=== PATIENT | female | born 1970 | race Caucasian/White ===

== ENCOUNTER 2019-04-22 22:36 | Emergency (ER) | payer OTHER ==
[~2019-04-22] VITALS: Ht 162.6 cm; Wt 104.5 kg
[2019-04-22 22:40] VITALS: Ht 162.6 cm; Wt 104.5 kg
[2019-04-23] MEDS ORDERED: KETOROLAC 15 MG INJ IM STA (01:39)
[2019-04-23] MEDS ORDERED: HYDROCODONE/APAP (5/325) TAB PO ONE (02:00)
--- NOTE | 2019-04-23 02:09 | ERD ---
ER Documentation Chief Complaint Chief Complaint BIB RA FROM HOME W/ C/O LT KNEE PAIN X1 MONTH HPI This is a 48-year-old female with a past medical history of morbid obesity, chronic arthritis, right sided DVT status post surgery who is presenting with 1 month of progressive worsening left knee pain. She reports that it is waxing and waning, moderate, aching, exacerbated by movement and ambulation. Over the last few days, the patient reports that the pain seemed to get worse, which is what ultimately prompted her to come to the emergency department. In the process of walking down the stairs, she reports almost falling because her knee gave out on her. The patient was being supported while she was walking down the stairs and did not fall. She does not endorse any trauma or injury. She does not endorse any significant lower extremity swelling at this time. She does not endorse any calf tenderness. Her pain is isolated to the knee. The patient denies feeling sick recently. The patient denies fever or chills. The patient has had no headache or vision changes. The patient does not endorse neck or back pain. The patient denies lightheadedness or dizziness. The patient has had no chest pain or trouble breathing. The patient denies nausea or vomiting. The patient denies abdominal pain. The patient denies changes to bowel movements or urination. The patient has had no focal deficits. The patient has had no weakness or numbness or tingling to the face or extremities. ROS All systems reviewed and are negative except as per history of present illness. PMhx/Soc History of Surgery: Yes (DVT R. LEG, LEFT WRIST) Hx Neurological Disorder: No Hx Respiratory Disorders: No Hx Cardiac Disorders: No Hx Miscellaneous Medical Probl: Yes (DVT R. LEG) Hx Alcohol Use: No Hx Substance Use: No Hx Tobacco Use: Yes Smoking Status: Current some day smoker FmHx Family History: No diabetes Physical Exam Vitals Vital Signs Date Temp Pulse Resp B/P (MAP) Pulse Ox O2 O2 Flow FiO2 Time Delivery Rate 04/23/19 85 21 109/82 97 Room Air 01:40 (91) 04/22/19 77 14 92/56 (68) 100 Room Air 23:30 04/22/19 98.4 97 19 93/74 (80) 100 22:40 Physical Exam Const: No acute distress Head: Atraumatic Eyes: Normal Conjunctiva ENT: Normal External Ears, Nose and Mouth. Neck: Full range of motion. No meningismus. Resp: Clear to auscultation bilaterally Cardio: Regular rate and rhythm, no murmurs Abd: Obese. Soft, non tender, non distended. Normal bowel sounds Skin: No petechiae or rashes Back: No midline or flank tenderness Ext: No cyanosis, or edema. Left anterior knee tenderness. Range of motion normal. No deformities. Neur: Awake and alert Psych: Normal Mood and Affect Results 24 hrs Current Medications Medications Dose Sig/Etienne Start Time Status Last (Trade) Ordered Route PRN Stop Time Admin Dose Reason Admin Ketorolac 15 mg ONCE STAT 04/23/19 DC Tromethamine IM 01:39 (Toradol) 04/23/19 01:40 1 tab ONCE ONCE 04/23/19 Acetaminophen PO 02:00 / 04/23/19 02:01 Hydrocodone Bitart ([place] (5/325)) Procedures/MDM MDM The patient's presentation warrants further investigation. Previous medical records, if available, were reviewed. EKG EKG read by me: Rate/Rhythm: Mild sinus tachycardia at 101 bpm Intervals: Normal [place]: Left Impression: Mild tachycardia. No evidence of acute ischemia IMAGING Imaging and Radiology interpretation reviewed. X-ray left knee FINDINGS: No evidence of acute displaced fracture or osseous aggressive changes such as erosion, demineralization, or periosteal reaction. Normal alignment of the femorotibial and patellofemoral joints without subluxation. There is mild sharpening of the tibial spines. There is mild asymmetric narrowing of the medial compartment. There is mild joint effusion. No radiopaque or metallic foreign body identified. Unremarkable appearance of the overlying soft tissues. IMPRESSION: No radiographic evidence of acute or aggressive osseous changes in the left knee joint. Degenerative changes including sharpening of the tibial spines and mild asymmetric narrowing of the medial compartment. Mild joint effusion. Electronically viewed and signed by Physician Artemio on 04/22/2019 23:24 Left lower extremity Doppler FINDINGS: There is normal compressibility and flow within the left common femoral, deep femoral, superficial femoral and popliteal veins. The deep veins of the calf are also patent. IMPRESSION: No sonographic evidence for deep venous thrombosis in the left lower extremity. Electronically viewed and signed by Physician Artemio on 04/22/2019 23:22 TREATMENT/DISPOSITION The patient presents for chronic left knee pain. I do not see any evidence of fracture or dislocation. There is a mild joint effusion. I do suspect osteoarthritis, likely related to her very high BMI and large body habitus. I do not suspect a septic joint. The patient's pain is anterior. I do not suspect a Calle's cyst. The patient's DVT study is negative. I have low paramjit picion for a neurovascular etiology. The patient was treated with Toradol and [place]. The patient's knee was wrapped with an Dean bandage for comfort. DISCHARGE Upon reevaluation of the patient, symptoms have improved. No emergent diagnoses were identified. At this time, I feel that the patient stable for discharge. The patient was instructed to follow-up with a primary care physician in 1-3 days. The patient will be given strict precautions with which to return to the emergency department. Prescriptions: Ibuprofen, oxycodone Disclaimer: Inadvertent spelling and grammatical errors are likely due to EHR/dictation software use and do not reflect on the overall quality of patient care. Note that the electronic time recorded on this note does not necessarily reflect the actual time of the patient encounter. Departure Diagnosis: Primary Impression: Chronic pain of left knee Additional Impression: Arthritis Condition: Stable Patient Instructions: Knee Pain, Uncertain Cause, Reducing Knee Pain and Swelling Additional Instructions: Thank you for for coming to [facility] for your care today. Please ask your nurse or provider if you have questions about your care today and do not leave until all your questions have been answered. Please use any medications given as directed and follow-up with your doctor (or the doctor you were referred to) in the next 1-3 days. If you do not have a primary care doctor you may follow up at the [facility] or critical access hospital clinic (listed below). You may also use motrin and tylenol as needed for fever and/or pain unless instructed otherwise by your provider or nurse. Indications for more urgent follow-up have been discussed, but you may return to the Emergency Department at ANY time for any worrisome or worsening symptoms. If you have abdominal pain, please know that no test or exam you received is perfect and you should follow up within 8 hours for continued pain. If you had any imaging studies today, such as an X-Ray or CT Scan, these studies will be reviewed later by a radiologist. You will be called if there are important findings that were not identified today, so make sure the contact information you provided at registration is correct. If you received any narcotic pain control medicine today, such as Vicodin, Morphine or Dilaudid, your coordination and judgment may be affected for a number of hours. Please do not drive or operate heavy machinery, and you may want someone to assist you at home. If you were given a prescription for narc otic medication, be aware that it is very addictive- use sparingly and only if necessary. PLEASE SEEK FURTHER EVALUATION AND MANAGEMENT AT YOUR DOCTORS OFFICE WITHIN THE NEXT 1-3 DAYS. IT IS YOUR RESPONSIBILITY TO MAKE AN APPOINTMENT FOR FOLOW-UP CARE. IF YOU HAVE A PRIMARY DOCTOR, PLEASE CALL THEIR OFFICE TO SCHEDULE AN APPOINTMENT FOR FOLLOW UP. IF YOU DO NOT HAVE A PRIMARY DOCTOR YOU CAN CALL OUR PHYSICIAN REFERRAL HOTLINE AT IF YOU CAN NOT AFFORD TO SEE A PHYSICIAN YOU CAN CHOSE FROM THE FOLLOWING [facility]: [facility] [address] [facility] [facility] [address] [facility] [facility] [address] [facility] [facility] [address] [facility]. [facility] [address] [facility] [facility]. [address] GUERITA RODRIGUEZ MD Apr 23, 2019 02:09
[2019-04-23] MEDS ORDERED: IBUP-1542 PO (02:11)
[2019-04-23] MEDS ORDERED: OXYC5CAP17 PO (02:11)
[2019-04-23 02:30] VITALS: BP 115/78; PULSE 80; RESP 16
== END 2019-04-23 02:30 | disposition home or self-care (01) ==
LOC: E/R 22:36
DX: M25.562 Pain in left knee (principal); M19.90 Unspecified osteoarthritis, unspecified site; F17.210 Nicotine dependence, cigarettes, uncomplicated; E66.01 Morbid (severe) obesity due to excess calories; Z68.39 Body mass index [BMI] 39.0-39.9, adult
CPT/HCPCS: 73562; 81025; 93005; 93971; 96372; J1885; Z7502; Z7610